=== PATIENT | male | born 1950 | race Caucasian/White ===

== ENCOUNTER 2018-12-03 14:16 | Inpatient (IN) | payer MEDICARE, MEDICAID ==
[~2018-12-03] VITALS: Ht 172.7 cm; Wt 71.2 kg
[2018-12-03] MEDS ORDERED: PANTOPRAZOLE SODIUM 40 MG VIAL IV ONE (14:45)
[2018-12-03] MEDS ORDERED: ONDANSETRON 4 MG/2 ML VIAL IV ONE (14:45)
[2018-12-03] MEDS ORDERED: IV NORMAL SALINE 1000 ML BAG IV ONE (14:45)
[2018-12-03] MEDS ORDERED: PANTOPRAZOLE SODIUM 40 MG VIAL ONE (14:55)
[2018-12-03] MEDS ORDERED: ONDANSETRON 4 MG/2 ML VIAL ONE (14:55)
[2018-12-03 15:04] LABS: BASOPHILS % (AUTO) 0.6 % (0.0-2.0); EOSINOPHILS % (AUTO) 0.3 % (0.0-7.0); HEMATOCRIT 45.3 % (36.7-47.1); HEMOGLOBIN 14.6 g/dL (12.5-16.3); LYMPHOCYTES # (AUTO) 0.5 K/uL (20.0-40.0); LYMPHOCYTES % (AUTO) 8.6 % (20.5-51.5); MEAN CORPUSCULAR HEMOGLOBIN 27.6 uug (23.8-33.4); MEAN CORPUSCULAR HGB CONC 32 g/dL (32.5-36.3); MONOCYTES # (AUTO) 0.7 K/uL (2.0-10.0); MONOCYTES % (AUTO) 11.4 % (0.0-11.0); NEUTROPHILS # (AUTO) 4.6 K/uL (1.8-8.9); NEUTROPHILS % (AUTO) 79.1 % (38.5-71.5); PLATELET COUNT (AUTO) 205 K/uL (152-348); RED BLOOD CELL COUNT(AUTO) 5.27 MIL/uL (4.06-5.63); WHITE BLOOD COUNT (AUTO) 5.8 K/uL (3.6-10.2)
[2018-12-03 15:08] LABS: CREATININE 2.3 mg/dL (0.6-1.3); POTASSIUM 4.1 mmol/L (3.5-5.1)
[2018-12-03 15:15] LABS: BILIRUBIN,DIRECT 0.5 mg/dL (0.0-0.2); BILIRUBIN,TOTAL 1.5 mg/dL (0.2-1.0); TOTAL PROTEIN, SERUM 6.3 g/dL (6.4-8.2)
[2018-12-03] MEDS ORDERED: AZITHROMYCIN IV 500 MG in IV DEXTROSE 5% 250 ML IV ONE (15:30)
[2018-12-03] MEDS ORDERED: CEFTRIAXONE 1 G in IV DEXTROSE 5% 50 ML IV ONE (15:30)
[2018-12-03] MEDS ORDERED: CEFTRIAXONE /D5W 50ML IVPB **ER PYXIS IV ONE (15:54)
[2018-12-03] MEDS ORDERED: AZITHROMYCIN 500MG/ D5W 250ML IVPB **ER PYXIS ONLY IV ONE (16:01)
[2018-12-03] MEDS ORDERED: TAMS-3 PO (16:22)
[2018-12-03] MEDS ORDERED: TRAZ-182 PO (16:22)
[2018-12-03] MEDS ORDERED: FURO-151 PO (16:22)
[2018-12-03] MEDS ORDERED: ASPI81TA31 PO (16:22)
[2018-12-03] MEDS ORDERED: METH5TAB4 PO (16:22)
[2018-12-03] MEDS ORDERED: CITA20TA16 PO (16:22)
[2018-12-03] MEDS ORDERED: DONE5TAB34 PO (16:22)
[2018-12-03] MEDS ORDERED: CARV12.52 PO (16:22)
[2018-12-03] MEDS ORDERED: LEVO112T5 PO (16:22)
[2018-12-03] MEDS ORDERED: ATOR40TA PO (16:22)
[2018-12-03] MEDS ORDERED: FAMO-132 PO (16:22)
[2018-12-03] MEDS ORDERED: WARF2TAB57 PO (17:08)
[2018-12-03 20:45] VITALS: BP 155/108
[2018-12-03] MEDS ORDERED: Z GUARD REMEDY PASTE 57 GM TUBE TOP PRN (21:30)
[2018-12-03] MEDS ORDERED: HYDROCODONE/APAP 5-325MG TABLET PO PRN (21:30)
[2018-12-03] MEDS ORDERED: ACETAMINOPHEN 325 MG TABLET PO PRN (21:30)
[2018-12-03] MEDS ORDERED: ZOLPIDEM 5 MG TABLET PO PRN (21:30)
[2018-12-03] MEDS ORDERED: MAGNESIUM HYDROXIDE 30 ML LIQUID UDC PO PRN (21:30)
[2018-12-03] MEDS ORDERED: ONDANSETRON 4 MG/2 ML VIAL IV PRN (21:30)
[2018-12-03] MEDS ORDERED: CARVEDILOL 12.5 MG TABLET PO ONE (22:30)
[2018-12-03] MEDS: IV NS 1000 ML 1,000 ML IV PRN (23:05)
[2018-12-03 23:23] LABS: *BILIRUBIN,URIN NEGATIVE (NEGATIVE); *BLOOD, URINE 2+ (NEGATIVE); *CLARITY,URINE CLOUDY (CLEAR); *COLOR,URINE AMBER (YELLOW); *KETONES,URINE TRACE (NEGATIVE); *UROBILINOGEN,URINE 0.2 E.U./dl (NORMAL); LEUKOCYTE ESTERASE ,URINE 1+ (NEGATIVE); NITRITE, URINE NEGATIVE (NEGATIVE); UGLUCOSE NEGATIVE (NEGATIVE)
[2018-12-04] VITALS (7 sets, daily range): BP systolic 112–146; BP diastolic 72–101
[2018-12-04 00:05] LABS: RBC,URINE 20-50 /HPF (0-3)
[2018-12-04 00:06] LABS: BACTERIA,URINE MANY /HPF (NONE SEEN); SQUAMOUS EPITHELIAL CELL,UR FEW /HPF (NONE SEEN); WBC,URINE 20-50 /HPF (0-3)
[2018-12-04 06:33] LABS: BASOPHILS % (AUTO) 0.8 % (0.0-2.0); EOSINOPHILS # (AUTO) 0.1 K/uL (0.0-0.7); EOSINOPHILS % (AUTO) 1.3 % (0.0-7.0); HEMATOCRIT 42.5 % (36.7-47.1); HEMOGLOBIN 13.9 g/dL (12.5-16.3); LYMPHOCYTES # (AUTO) 0.6 K/uL (20.0-40.0); LYMPHOCYTES % (AUTO) 11.4 % (20.5-51.5); MEAN CORPUSCULAR HEMOGLOBIN 27.9 uug (23.8-33.4); MEAN CORPUSCULAR HGB CONC 33 g/dL (32.5-36.3); MEAN CORPUSCULAR VOLUME 85.3 fL (73.0-96.2); MONOCYTES # (AUTO) 0.6 K/uL (2.0-10.0); MONOCYTES % (AUTO) 11.1 % (0.0-11.0); NEUTROPHILS % (AUTO) 75.4 % (38.5-71.5); PLATELET COUNT (AUTO) 195 K/uL (152-348); RED BLOOD CELL COUNT(AUTO) 4.99 MIL/uL (4.06-5.63); WHITE BLOOD COUNT (AUTO) 5.2 K/uL (3.6-10.2)
[2018-12-04 06:46] LABS: CREATININE 2.1 mg/dL (0.6-1.3); MAGNESIUM 2.1 mg/dL (1.8-2.4); PHOSPHOROUS 3.5 mg/dL (2.5-4.9); POTASSIUM 3.9 mmol/L (3.5-5.1)
[2018-12-04] MEDS ORDERED: DEXTROSE 50% 50 ML DISP.SYRIN IV PRN ×2 (08:30→17:15)
[2018-12-04] MEDS ORDERED: INSULIN REGULAR, HUMAN 300 UNIT/3 ML VIAL SQ PRN ×2 (08:30→09:00)
[2018-12-04] MEDS: TAMSULOSIN HCL 0.4 MG CAP.SR.24H PO SCH (08:59)
[2018-12-04] MEDS: CARVEDILOL 12.5 MG TABLET PO SCH ×2 (08:59→21:29)
[2018-12-04] MEDS: ASPIRIN 81 MG TAB.CHEW PO SCH (08:59)
[2018-12-04] MEDS: CITALOPRAM 20 MG TABLET PO SCH (08:59)
[2018-12-04] MEDS: METHYLPHENIDATE HCL 5 MG TABLET PO SCH (08:59)
[2018-12-04] MEDS: DONEPEZIL 5 MG TABLET PO SCH (08:59)
[2018-12-04] MEDS: LEVOTHYROXINE SODIUM 112 MCG TABLET PO SCH (08:59)
[2018-12-04] MEDS: FAMOTIDINE 20 MG TABLET PO SCH (08:59)
[2018-12-04] MEDS: BLOOD SUGAR DIAGNOSTIC 1 EACH STRIP VI SCH ×5 (11:45→21:32)
[2018-12-04] MEDS: CEFTRIAXONE 1 G in IV DEXTROSE 5% 50 ML IV SCH (16:49)
[2018-12-04] MEDS: INSULIN REGULAR, HUMAN 300 UNIT/3 ML VIAL SQ PRN ×2 (17:26→21:35)
[2018-12-04] MEDS: AZITHROMYCIN IV 250 MG in IV DEXTROSE 5% 250 ML IV SCH (17:44)
[2018-12-04] MEDS: WARFARIN SODIUM 2 MG TABLET PO SCH (17:53)
[2018-12-04] MEDS: ATORVASTATIN 40 MG TABLET PO SCH (21:23)
[2018-12-04] MEDS: TRAZODONE 50 MG TABLET PO SCH (21:23)
[2018-12-05] MEDS: IV NS 1000 ML 1,000 ML IV PRN ×2 (00:36→15:05)
[2018-12-05 05:00] VITALS: BP 109/71
[2018-12-05 08:00] VITALS: BP 109/78
[2018-12-05] MEDS: BLOOD SUGAR DIAGNOSTIC 1 EACH STRIP VI SCH ×5 (08:27→21:25)
[2018-12-05] MEDS: CITALOPRAM 20 MG TABLET PO SCH (10:38)
[2018-12-05] MEDS: ASPIRIN 81 MG TAB.CHEW PO SCH (10:38)
[2018-12-05] MEDS: DONEPEZIL 5 MG TABLET PO SCH (10:38)
[2018-12-05] MEDS: CARVEDILOL 12.5 MG TABLET PO SCH ×2 (10:40→21:26)
[2018-12-05] MEDS: METHYLPHENIDATE HCL 5 MG TABLET PO SCH (10:41)
[2018-12-05] MEDS: FAMOTIDINE 20 MG TABLET PO SCH (10:41)
[2018-12-05] MEDS: TAMSULOSIN HCL 0.4 MG CAP.SR.24H PO SCH (10:41)
[2018-12-05] MEDS: LEVOTHYROXINE SODIUM 112 MCG TABLET PO SCH (10:42)
[2018-12-05 11:00] VITALS: BP 122/85
[2018-12-05 12:21] LABS: BASOPHILS % (AUTO) 0.5 % (0.0-2.0); EOSINOPHILS # (AUTO) 0.1 K/uL (0.0-0.7); EOSINOPHILS % (AUTO) 1.4 % (0.0-7.0); HEMATOCRIT 43.6 % (36.7-47.1); HEMOGLOBIN 13.4 g/dL (12.5-16.3); LYMPHOCYTES # (AUTO) 0.5 K/uL (20.0-40.0); LYMPHOCYTES % (AUTO) 8.2 % (20.5-51.5); MEAN CORPUSCULAR HEMOGLOBIN 26.5 uug (23.8-33.4); MEAN CORPUSCULAR HGB CONC 31 g/dL (32.5-36.3); MEAN CORPUSCULAR VOLUME 86.5 fL (73.0-96.2); MONOCYTES # (AUTO) 0.5 K/uL (2.0-10.0); NEUTROPHILS # (AUTO) 4.9 K/uL (1.8-8.9); NEUTROPHILS % (AUTO) 80.9 % (38.5-71.5); PLATELET COUNT (AUTO) 167 K/uL (152-348); RED BLOOD CELL COUNT(AUTO) 5.04 MIL/uL (4.06-5.63)
[2018-12-05 12:23] LABS: BILIRUBIN,TOTAL 0.7 mg/dL (0.2-1.0); PHOSPHOROUS 2.8 mg/dL (2.5-4.9); POTASSIUM 4.1 mmol/L (3.5-5.1); TOTAL PROTEIN, SERUM 5.6 g/dL (6.4-8.2)
[2018-12-05] MEDS: INSULIN REGULAR, HUMAN 300 UNIT/3 ML VIAL SQ PRN ×3 (12:30→21:28)
[2018-12-05] MEDS: CEFTRIAXONE 1 G in IV DEXTROSE 5% 50 ML IV SCH (15:45)
[2018-12-05 16:00] VITALS: BP 118/75
[2018-12-05] MEDS: AZITHROMYCIN IV 250 MG in IV DEXTROSE 5% 250 ML IV SCH (18:22)
[2018-12-05] MEDS: WARFARIN SODIUM 2 MG TABLET PO SCH (18:37)
[2018-12-05 20:05] VITALS: BP 110/73
[2018-12-05] MEDS: ATORVASTATIN 40 MG TABLET PO SCH (21:26)
[2018-12-05] MEDS: TRAZODONE 50 MG TABLET PO SCH (21:27)
[2018-12-06] VITALS: BP 118/74
[2018-12-06 04:00] VITALS: BP 113/72
[2018-12-06] MEDS: IV NS 1000 ML 1,000 ML IV PRN (04:05)
[2018-12-06] MEDS: BLOOD SUGAR DIAGNOSTIC 1 EACH STRIP VI SCH ×3 (06:59→16:51)
[2018-12-06] MEDS: LEVOTHYROXINE SODIUM 112 MCG TABLET PO SCH (09:09)
[2018-12-06] MEDS: CITALOPRAM 20 MG TABLET PO SCH (09:09)
[2018-12-06] MEDS: TAMSULOSIN HCL 0.4 MG CAP.SR.24H PO SCH (09:09)
[2018-12-06] MEDS: ASPIRIN 81 MG TAB.CHEW PO SCH (09:09)
[2018-12-06] MEDS: DONEPEZIL 5 MG TABLET PO SCH (09:09)
[2018-12-06] MEDS: FAMOTIDINE 20 MG TABLET PO SCH (09:09)
[2018-12-06] MEDS: METHYLPHENIDATE HCL 5 MG TABLET PO SCH (09:09)
[2018-12-06] MEDS: CARVEDILOL 12.5 MG TABLET PO SCH (09:10)
[2018-12-06 11:00] VITALS: BP 136/89
[2018-12-06] MEDS: INSULIN REGULAR, HUMAN 300 UNIT/3 ML VIAL SQ PRN ×2 (12:27→16:52)
[2018-12-06] MEDS ORDERED: INSU100V28 SQ (13:45)
[2018-12-06] MEDS ORDERED: CEFT1FRO2 IV (13:45)
[2018-12-06 15:26] VITALS: BP 141/87
[2018-12-06 15:39] LABS: BASOPHILS # (AUTO) 0.1 K/uL (0.0-8.0); BASOPHILS % (AUTO) 1.2 % (0.0-2.0); EOSINOPHILS # (AUTO) 0.1 K/uL (0.0-0.7); EOSINOPHILS % (AUTO) 1.4 % (0.0-7.0); HEMATOCRIT 45.5 % (36.7-47.1); HEMOGLOBIN 13.9 g/dL (12.5-16.3); LYMPHOCYTES # (AUTO) 0.6 K/uL (20.0-40.0); LYMPHOCYTES % (AUTO) 10.3 % (20.5-51.5); MEAN CORPUSCULAR HEMOGLOBIN 26.3 uug (23.8-33.4); MEAN CORPUSCULAR HGB CONC 31 g/dL (32.5-36.3); MEAN CORPUSCULAR VOLUME 86.1 fL (73.0-96.2); MONOCYTES # (AUTO) 0.6 K/uL (2.0-10.0); MONOCYTES % (AUTO) 10.3 % (0.0-11.0); NEUTROPHILS # (AUTO) 4.6 K/uL (1.8-8.9); NEUTROPHILS % (AUTO) 76.8 % (38.5-71.5); PLATELET COUNT (AUTO) 158 K/uL (152-348); RED BLOOD CELL COUNT(AUTO) 5.29 MIL/uL (4.06-5.63); WHITE BLOOD COUNT (AUTO) 5.9 K/uL (3.6-10.2)
[2018-12-06 15:54] LABS: CREATININE 1.8 mg/dL (0.6-1.3); POTASSIUM 4.6 mmol/L (3.5-5.1)
[2018-12-06] MEDS: CEFTRIAXONE 1 G in IV DEXTROSE 5% 50 ML IV SCH (16:02)
[2018-12-06] MEDS: WARFARIN SODIUM 2 MG TABLET PO SCH (16:53)
[2018-12-07 04:06] LABS: A/G RATIO 1.1 (0.7-1.7); ALBUMIN 2.6 g/dL (2.9-4.4); ALPHA-1-GLOBULIN 0.3 g/dL (0.0-0.4); ALPHA-2-GLOBULIN 0.6 g/dL (0.4-1.0); BETA GLOBULIN 0.9 g/dL (0.7-1.3); GAMMA GLOBULIN 0.7 g/dL (0.4-1.8); GLOBULIN, TOTAL 2.4 g/dL (2.2-3.9); M-SPIKE Not Observed g/dL (Not Observed)
== END 2018-12-06 18:30 | DRG 682 ==
LOC: ER 14:16 → TELE3 20:16
PROVIDERS: ADMIT Nurse Practitioner Acute Care; ATTEND Nurse Practitioner Acute Care
DX: N17.0 Acute kidney failure with tubular necrosis (principal); I71.01 Dissection of thoracic aorta; J15.6 Pneumonia due to other Gram-negative bacteria; G93.41 Metabolic encephalopathy; E44.1 Mild protein-calorie malnutrition; N39.0 Urinary tract infection, site not specified; J98.11 Atelectasis; R18.8 Other ascites; J91.8 Pleural effusion in other conditions classified elsewhere; N20.1 Calculus of ureter; Z95.810 Presence of automatic (implantable) cardiac defibrillator; G89.4 Chronic pain syndrome; I25.10 Atherosclerotic heart disease of native coronary artery without angina pectoris; Z95.1 Presence of aortocoronary bypass graft; I70.0 Atherosclerosis of aorta; N40.0 Benign prostatic hyperplasia without lower urinary tract symptoms; K21.9 Gastro-esophageal reflux disease without esophagitis; F03.90 Unspecified dementia, unspecified severity, without behavioral disturbance, psychotic disturbance, mood disturbance, and anxiety; B96.20 Unspecified Escherichia coli [E. coli] as the cause of diseases classified elsewhere; Z16.12 Extended spectrum beta lactamase (ESBL) resistance; Z16.24 Resistance to multiple antibiotics; I13.10 Hypertensive heart and chronic kidney disease without heart failure, with stage 1 through stage 4 chronic kidney disease, or unspecified chronic kidney disease; E11.22 Type 2 diabetes mellitus with diabetic chronic kidney disease; N18.9 Chronic kidney disease, unspecified; I45.4 Nonspecific intraventricular block; E78.5 Hyperlipidemia, unspecified; E03.9 Hypothyroidism, unspecified; Z79.01 Long term (current) use of anticoagulants; Z79.899 Other long term (current) drug therapy; Z79.82 Long term (current) use of aspirin; Z79.02 Long term (current) use of antithrombotics/antiplatelets; Z79.890 Hormone replacement therapy; Z87.442 Personal history of urinary calculi; N13.30 Unspecified hydronephrosis
CPT/HCPCS: 36415; 70030-TC; 71045; 76770; 83605; 83690; 83735; 83970; 84100; 84155; 84165; 85025; 85610; 85730; 87040; 87086; 93005; A4663; C9113; G0378; J0456; J0696; J1815; J2405; J7030; J7060

== ENCOUNTER 2018-12-06 17:49 | Inpatient (IN) | payer MEDICARE, MEDICAID ==
[~2018-12-06] VITALS: Ht 172.7 cm; Wt 71.2 kg
[~2018-12-06 17:49] MED LIST: ASPI81TA31 PO; ATOR40TA PO; CARV12.52 PO; CEFT1FRO2 IV; CITA20TA16 PO; DONE5TAB34 PO; FAMO-132 PO; FURO-151 PO; INSU100V28 SQ; LEVO112T5 PO; METH5TAB4 PO; TAMS-3 PO; TRAZ-182 PO; WARF2TAB57 PO
--- NOTE | 2018-12-06 18:57 | NUR ---
DR CORREA MADE AWARE ABOUT ADMISSION AND DR DA SILVA TO [facility] Addendum: 12/06/18 at 1901 by CAMACHO BANDA RN, RN PATIENT ADMITTED FROM MEDSURGE 1830 TO ROOM 108 DX OF ACUTE KIDNEY INJURY, NO SOB, RESP EVEN NONLABORED,SKIN WARM AND DRY TO TOUCH, PATIENT IN BED, CALM AND COMFORTABLE, NO DISTRESS NOTED
[2018-12-06] MEDS ORDERED: INSULIN REGULAR, HUMAN 300 UNIT/3 ML VIAL SQ PRN (19:15)
[2018-12-06] MEDS ORDERED: DEXTROSE 50% 50 ML DISP.SYRIN IV PRN (20:00)
[2018-12-06] MEDS: TRAZODONE 50 MG TABLET PO SCH (20:58)
[2018-12-06] MEDS: CARVEDILOL 12.5 MG TABLET PO SCH (20:59)
[2018-12-06] MEDS ORDERED: ATORVASTATIN 40 MG TABLET PO SCH (21:00)
[2018-12-06 21:01] VITALS: BP 137/90
[2018-12-06] MEDS: BLOOD SUGAR DIAGNOSTIC 1 EACH STRIP VI SCH (21:02)
[2018-12-06] MEDS: MEROPENEM 0.5 G in IV NORMAL SALINE 50 ML IV SCH (22:00)
[2018-12-06] MEDS ORDERED: MEROPENEM 500 MG VIAL IV ONE (23:19)
[2018-12-07 04:32] VITALS: BP 135/102
--- NOTE | 2018-12-07 04:34 | NUR ---
admitted from med-surg a 68 yr old male with admitting diagnosis of acute kidney injury. Hx of DM, Chronic back pain, BPH, Hypothyroidism, Dementia, CABG, lower thoracic aneurysm. AAOx3-4, able to follow commands. Patient has some periods of confusion at times, with forgetfulness. Lungs CTA but diminished at the bases. Skin intact with some multiple bruises with black and blue rogers. Seen by Dr Oconnell(psychiatrist) because before patient was on 51/50 hold but was already clear. Patient on contact isolation for VRE in urine. Patient started on IV ABT given as scheduled. No ill effects noted. Patient incontinent/continent of bowel and bladder. No BM noted. VSS. Patient pulled out heplock on right hand, replace with a #22 G heplock and instruct patient not to pull it since he needed it for his ABT. Patient compliant with the meds/order. Merrem given as scheduled. Will monitor patient. Seen by Dr Martinez([facility]) and ordered also ultrasound of the left forearm which is red and swollen.
[2018-12-07] MEDS ORDERED: MEROPENEM 500 MG VIAL IV ONE (05:41)
[2018-12-07] MEDS: MEROPENEM 0.5 G in IV NORMAL SALINE 50 ML IV SCH ×2 (05:54→17:06)
[2018-12-07] MEDS: LEVOTHYROXINE SODIUM 112 MCG TABLET PO SCH (06:34)
[2018-12-07] MEDS: BLOOD SUGAR DIAGNOSTIC 1 EACH STRIP VI SCH ×4 (06:37→20:36)
[2018-12-07 07:29] LABS: BASOPHILS # (AUTO) 0.1 K/uL (0.0-8.0); CREATININE 1.9 mg/dL (0.6-1.3); EOSINOPHILS # (AUTO) 0.1 K/uL (0.0-0.7); EOSINOPHILS % (AUTO) 1.6 % (0.0-7.0); HEMATOCRIT 43.2 % (36.7-47.1); HEMOGLOBIN 13.9 g/dL (12.5-16.3); LYMPHOCYTES # (AUTO) 0.7 K/uL (20.0-40.0); LYMPHOCYTES % (AUTO) 12.7 % (20.5-51.5); MAGNESIUM 2.1 mg/dL (1.8-2.4); MEAN CORPUSCULAR HEMOGLOBIN 27.8 uug (23.8-33.4); MEAN CORPUSCULAR HGB CONC 32 g/dL (32.5-36.3); MONOCYTES # (AUTO) 0.6 K/uL (2.0-10.0); MONOCYTES % (AUTO) 11.5 % (0.0-11.0); NEUTROPHILS # (AUTO) 3.9 K/uL (1.8-8.9); NEUTROPHILS % (AUTO) 73.2 % (38.5-71.5); PHOSPHOROUS 2.8 mg/dL (2.5-4.9); PLATELET COUNT (AUTO) 168 K/uL (152-348); POTASSIUM 4.5 mmol/L (3.5-5.1); RED BLOOD CELL COUNT(AUTO) 5.02 MIL/uL (4.06-5.63); WHITE BLOOD COUNT (AUTO) 5.3 K/uL (3.6-10.2)
[2018-12-07 08:05] VITALS: BP 137/91
[2018-12-07] MEDS: CITALOPRAM 20 MG TABLET PO SCH (08:37)
[2018-12-07] MEDS: DONEPEZIL 5 MG TABLET PO SCH (08:37)
[2018-12-07] MEDS: METHYLPHENIDATE HCL 5 MG TABLET PO SCH (08:38)
[2018-12-07] MEDS: CARVEDILOL 12.5 MG TABLET PO SCH ×2 (08:38→20:35)
[2018-12-07] MEDS: FAMOTIDINE 20 MG TABLET PO SCH (08:38)
[2018-12-07] MEDS ORDERED: ASPIRIN 81 MG TAB.CHEW PO SCH (09:00)
[2018-12-07] MEDS ORDERED: TAMSULOSIN HCL 0.4 MG CAP.SR.24H PO SCH (09:00)
--- NOTE | 2018-12-07 11:36 | NUR ---
Patient critical high INR 4.15 result relayed to MD Bernal. no new order. no complaint of pain/discomfort. no signs of bleeding noted. will continue monitor Addendum: 12/07/18 at 1143 by SUJATA PENA RN RN Will hold coumadin 2mg as per protocol order.
--- NOTE | 2018-12-07 11:48 | NUR ---
Patient went out on pass around 930am to post office as verbalize by patient in stable condition. Came back around 1145am. no complaint voiced. will continue monitor Addendum: 12/07/18 at 1235 by SUJATA PENA RN RN ERROR
[2018-12-07] MEDS ORDERED: BLOOD SUGAR DIAGNOSTIC 1 EACH STRIP VI SCH (12:15)
[2018-12-07] MEDS ORDERED: INSULIN REGULAR, HUMAN 300 UNIT/3 ML VIAL SQ PRN (12:15)
[2018-12-07] MEDS ORDERED: DEXTROSE 50% 50 ML DISP.SYRIN IV PRN ×2 (12:15)
[2018-12-07] MEDS: INSULIN REGULAR, HUMAN 300 UNIT/3 ML VIAL SQ PRN ×2 (12:19→16:11)
--- NOTE | 2018-12-07 12:36 | NUR ---
MD Bernal ordered hold coumadin as per protocol.
[2018-12-07] MEDS: ALPRAZOLAM 0.5 MG TABLET PO PRN (14:11)
--- NOTE | 2018-12-07 14:26 | NUR ---
Patient complaint of difficulty breathing and anxious. VS:BP-149/101, P77, R 28, O2 sat- 98% with o2. chest x-ray ordered by MD Bernal. Xanax 0.5 every 8 hours PRN-given. not in distress. will continue monitor
[2018-12-07 15:14] VITALS: BP 136/96
[2018-12-07] MEDS ORDERED: CEFTRIAXONE 1 G in IV DEXTROSE 5% 50 ML IV SCH (16:00)
[2018-12-07] MEDS ORDERED: ALBUTEROL SULFATE 2.5 MG/3 ML NEBU NEB PRN (16:00)
[2018-12-07] MEDS ORDERED: WARFARIN SODIUM 2 MG TABLET PO SCH (17:00)
--- NOTE | 2018-12-07 17:19 | NUR ---
Patient continue difficulty of breathing noted. Respiration- 25, MD Bernal aware, chest x-ray done, relayed to MD. ordered breathing treatment albuterol every 4 hours PRN- given with fair effect. will continue monitor
[2018-12-07 20:18] VITALS: BP 131/87
[2018-12-07] MEDS: ATORVASTATIN 10 MG TABLET PO SCH (20:35)
[2018-12-07] MEDS: TRAZODONE 50 MG TABLET PO SCH (20:35)
[2018-12-08 04:53] VITALS: BP 139/94
[2018-12-08] MEDS: MEROPENEM 0.5 G in IV NORMAL SALINE 50 ML IV SCH ×2 (05:02→17:09)
--- NOTE | 2018-12-08 05:51 | NUR ---
Patient received in bed, AAO x3. Not in acute distress or SOB. Able to make needs known. On 2 L O2 via NC. VS stable. No Complain of pain. All due medication given and well tolerated. Pictures taken and placed in the chart. Accucheck @ 2100 checked: 107, no coverage based on sliding scale. IV antibiotic administered. All needs attended promptly. Physical assessment done. Fall prevention observed. Safety measures maintained. Isolation maintained. Bed in low and lock position, alarm on, side rails up x2 for safety. Call light and frequently used items within reach. Continue to monitor and will endorse to the day shift nurse accordingly.
[2018-12-08] MEDS: LEVOTHYROXINE SODIUM 112 MCG TABLET PO SCH (06:08)
[2018-12-08] MEDS: BLOOD SUGAR DIAGNOSTIC 1 EACH STRIP VI SCH ×4 (06:32→20:22)
[2018-12-08] MEDS: DONEPEZIL 5 MG TABLET PO SCH (08:15)
[2018-12-08] MEDS: FAMOTIDINE 20 MG TABLET PO SCH (08:15)
[2018-12-08] MEDS: CITALOPRAM 20 MG TABLET PO SCH (08:15)
[2018-12-08] MEDS: METHYLPHENIDATE HCL 5 MG TABLET PO SCH (08:15)
[2018-12-08] MEDS: ASPIRIN EC 81 MG TABLET.DR PO SCH (08:15)
[2018-12-08] MEDS: CARVEDILOL 12.5 MG TABLET PO SCH ×2 (08:16→20:14)
[2018-12-08] MEDS: GLIMEPIRIDE 2 MG TABLET PO SCH (08:16)
--- NOTE | 2018-12-08 09:12 | NUR ---
Patient INR 3.35 relayed to MD Bernal with order continue hold coumadin. no signs of bleeding noted. not in distress. will continue monitor
[2018-12-08 09:37] VITALS: BP 135/88
[2018-12-08] MEDS: INSULIN REGULAR, HUMAN 300 UNIT/3 ML VIAL SQ PRN ×3 (11:45→20:24)
[2018-12-08] MEDS ORDERED: BENZOCAINE/MENTH/CETYLPYRD LOZENGE MM PRN (12:30)
--- NOTE | 2018-12-08 12:45 | NUR ---
Patient complaint of sore throat. MD Bernal notified ordered cepacol 1 lozenges every 4hours PRN.
[2018-12-08 16:38] VITALS: BP 126/87
[2018-12-08] MEDS ORDERED: COUMADIN VARIABLE DOSE REMINDE XX SCH (17:00)
[2018-12-08] MEDS: ATORVASTATIN 10 MG TABLET PO SCH (20:15)
[2018-12-08] MEDS: TRAZODONE 50 MG TABLET PO SCH (20:15)
[2018-12-08] MEDS: TAMSULOSIN HCL 0.4 MG CAP.SR.24H PO SCH (20:15)
[2018-12-08 21:07] VITALS: BP 127/88
[2018-12-09 05:09] VITALS: BP 144/97
[2018-12-09] MEDS: MEROPENEM 0.5 G in IV NORMAL SALINE 50 ML IV SCH ×2 (05:31→18:11)
[2018-12-09] MEDS: LEVOTHYROXINE SODIUM 112 MCG TABLET PO SCH (06:39)
[2018-12-09] MEDS: BLOOD SUGAR DIAGNOSTIC 1 EACH STRIP VI SCH ×4 (06:43→20:59)
--- NOTE | 2018-12-09 06:54 | NUR ---
patient slept intermittently through out the night. patient a/o x3. patient compliant with medication and medical treatment. patient able to verbalized needs and needs have been met. noted patient to desat into the high 80s without nasal cannula 2L. When nasal cannula is applied, patient O2 saturations increased to 100%. Dr. Dee came by in the evening to see the patient. Will continue plan of care and endorse to oncoming day shift.
[2018-12-09] MEDS: ASPIRIN EC 81 MG TABLET.DR PO SCH (08:08)
[2018-12-09] MEDS: FAMOTIDINE 20 MG TABLET PO SCH (08:08)
[2018-12-09] MEDS: GLIMEPIRIDE 2 MG TABLET PO SCH (08:09)
[2018-12-09] MEDS: METHYLPHENIDATE HCL 5 MG TABLET PO SCH (08:09)
[2018-12-09] MEDS: DONEPEZIL 5 MG TABLET PO SCH (08:11)
[2018-12-09] MEDS: CARVEDILOL 12.5 MG TABLET PO SCH ×2 (08:14→20:51)
--- NOTE | 2018-12-09 08:15 | NUR ---
Patient awake, alert, not in any form of distress on O2 at 2LPM. He denies any pain or discomfort. Due medications administered and patient tolerated well. Assisted with his needs. Call light and frequently used items placed within reach.
[2018-12-09] MEDS: CITALOPRAM 20 MG TABLET PO SCH (08:19)
[2018-12-09 08:50] VITALS: BP 138/102
[2018-12-09] MEDS: INSULIN REGULAR, HUMAN 300 UNIT/3 ML VIAL SQ PRN ×2 (17:01→21:00)
[2018-12-09 17:13] VITALS: BP 143/104
--- NOTE | 2018-12-09 17:40 | NUR ---
Received an order from Dr. Bernal for Psych eval. Called manager educational psychiatrist Dr. Oconnell and made aware of the consult.
--- NOTE | 2018-12-09 19:40 | NUR ---
Staffs trying to start peripheral line to the patient during initial rounds. Patient very cooperative but complaint of pain sometimes. Noted multiple bruises on patient bilateral arms due to IV insertion made. No agitation/resistance, peripheral line started on right upper arm x 2 attempts, intact and patient with good return, taped to secure. Contact isolation precaution maintained. Continue care as planned.
[2018-12-09] MEDS: TAMSULOSIN HCL 0.4 MG CAP.SR.24H PO SCH (20:52)
[2018-12-09] MEDS: ATORVASTATIN 10 MG TABLET PO SCH (20:52)
[2018-12-09] MEDS: TRAZODONE 50 MG TABLET PO SCH (20:53)
[2018-12-09 21:46] VITALS: BP 129/95
[2018-12-10] MEDS: MEROPENEM 0.5 G in IV NORMAL SALINE 50 ML IV SCH ×2 (05:31→17:03)
[2018-12-10 06:04] VITALS: BP 137/86
--- NOTE | 2018-12-10 06:14 | NUR ---
Shift End Report: VS stable. No further complaint of pain presented after IV insertion.Continue on Merrem IVPB antibiotic as ordered without s/s of adverse reaction noted. Slept good. All needs attended and met. No significant event reported. Continue current rehab plan of care.
[2018-12-10] MEDS: BLOOD SUGAR DIAGNOSTIC 1 EACH STRIP VI SCH ×4 (06:34→20:50)
[2018-12-10] MEDS: LEVOTHYROXINE SODIUM 112 MCG TABLET PO SCH (06:34)
[2018-12-10 07:15] VITALS: BP 139/92
[2018-12-10 08:00] LABS: BASOPHILS # (AUTO) 0.1 K/uL (0.0-8.0); BASOPHILS % (AUTO) 1.2 % (0.0-2.0); EOSINOPHILS # (AUTO) 0.1 K/uL (0.0-0.7); EOSINOPHILS % (AUTO) 2.3 % (0.0-7.0); HEMATOCRIT 44.2 % (36.7-47.1); HEMOGLOBIN 14.1 g/dL (12.5-16.3); LYMPHOCYTES # (AUTO) 0.5 K/uL (20.0-40.0); LYMPHOCYTES % (AUTO) 9.9 % (20.5-51.5); MEAN CORPUSCULAR HGB CONC 32 g/dL (32.5-36.3); MEAN CORPUSCULAR VOLUME 84.6 fL (73.0-96.2); MONOCYTES # (AUTO) 0.5 K/uL (2.0-10.0); MONOCYTES % (AUTO) 9.8 % (0.0-11.0); NEUTROPHILS # (AUTO) 4.2 K/uL (1.8-8.9); NEUTROPHILS % (AUTO) 76.8 % (38.5-71.5); PLATELET COUNT (AUTO) 155 K/uL (152-348); RED BLOOD CELL COUNT(AUTO) 5.22 MIL/uL (4.06-5.63); WHITE BLOOD COUNT (AUTO) 5.5 K/uL (3.6-10.2)
[2018-12-10 08:21] LABS: MAGNESIUM 1.9 mg/dL (1.8-2.4); PHOSPHOROUS 3.2 mg/dL (2.5-4.9); POTASSIUM 4.7 mmol/L (3.5-5.1); TOTAL PROTEIN, SERUM 5.6 g/dL (6.4-8.2)
[2018-12-10] MEDS: FAMOTIDINE 20 MG TABLET PO SCH (08:27)
[2018-12-10] MEDS: METHYLPHENIDATE HCL 5 MG TABLET PO SCH (08:28)
[2018-12-10] MEDS: ASPIRIN EC 81 MG TABLET.DR PO SCH (08:28)
[2018-12-10] MEDS: GLIMEPIRIDE 2 MG TABLET PO SCH (08:28)
[2018-12-10] MEDS: DONEPEZIL 5 MG TABLET PO SCH (08:29)
[2018-12-10] MEDS: CITALOPRAM 20 MG TABLET PO SCH (08:29)
[2018-12-10] MEDS: CARVEDILOL 12.5 MG TABLET PO SCH ×2 (08:30→20:44)
--- NOTE | 2018-12-10 09:35 | NUR ---
Notified Dr. Bernal regarding INR of 4.28 and BNP 73016 with no new order at this time.
[2018-12-10] MEDS: INSULIN REGULAR, HUMAN 300 UNIT/3 ML VIAL SQ PRN ×2 (12:34→20:52)
--- NOTE | 2018-12-10 15:25 | NUR ---
INTERDISCIPLINARY TEAM CONFERENCE
[2018-12-10 16:20] VITALS: BP 112/91
--- NOTE | 2018-12-10 18:30 | NUR ---
Patient remained alert, not in any form of distress, on 2LPM via NC during the shift. Peripheral line on the right upper arm patent with no signs of infection. No complain of any pain or discomfort. Patient seen by Dr. Bernal, update given, made aware of episodes of elevated diastolic BP with no new order. Patient compliant with medications. Assisted with his needs. Call light and frequently used items placed within reach. Will endorse accordingly to shift manager nurse.
--- NOTE | 2018-12-10 19:35 | NUR ---
Awake, watching TV during initial rounds with HOB elevated and continuos O2 at 2L via NC. No s/s of respiratory distress. Denies any pain/discomforts. Safety measures and fall precaution maintained. Continue care as planned.
[2018-12-10 20:21] VITALS: BP 143/100
[2018-12-10] MEDS: MIRTAZAPINE 15 MG TABLET PO SCH (20:44)
[2018-12-10] MEDS: ATORVASTATIN 10 MG TABLET PO SCH (20:44)
[2018-12-10] MEDS: TAMSULOSIN HCL 0.4 MG CAP.SR.24H PO SCH (20:44)
[2018-12-10 21:20] LABS: *BILIRUBIN,URIN NEGATIVE (NEGATIVE); *BLOOD, URINE NEGATIVE (NEGATIVE); *CLARITY,URINE CLEAR (CLEAR); *COLOR,URINE YELLOW (YELLOW); *KETONES,URINE NEGATIVE (NEGATIVE); LEUKOCYTE ESTERASE ,URINE TRACE (NEGATIVE); NITRITE, URINE NEGATIVE (NEGATIVE); PH,URINE 5.5 (5.0-8.0); UGLUCOSE NEGATIVE (NEGATIVE)
[2018-12-10 21:41] LABS: RBC,URINE 0-3 /HPF (0-3)
[2018-12-10 21:42] LABS: MUCUS,URINE MODERATE /LPF (0-FEW)
[2018-12-11 04:12] VITALS: BP 126/91
[2018-12-11] MEDS: MEROPENEM 0.5 G in IV NORMAL SALINE 50 ML IV SCH ×2 (05:26→17:53)
--- NOTE | 2018-12-11 06:08 | NUR ---
Shift End Report: Slept good. No complaint presented all night, All needs attended and met. No significant event reported all night. Continue care as planned.
[2018-12-11] MEDS: LEVOTHYROXINE SODIUM 112 MCG TABLET PO SCH (06:35)
[2018-12-11] MEDS: BLOOD SUGAR DIAGNOSTIC 1 EACH STRIP VI SCH ×4 (06:38→20:47)
[2018-12-11 08:00] VITALS: BP 162/96
[2018-12-11] MEDS: DONEPEZIL 5 MG TABLET PO SCH (09:28)
[2018-12-11] MEDS: ASPIRIN EC 81 MG TABLET.DR PO SCH (09:30)
[2018-12-11] MEDS: GLIMEPIRIDE 2 MG TABLET PO SCH (09:30)
[2018-12-11] MEDS: CARVEDILOL 12.5 MG TABLET PO SCH ×2 (09:30→20:47)
[2018-12-11] MEDS: FAMOTIDINE 20 MG TABLET PO SCH (09:32)
[2018-12-11] MEDS: METHYLPHENIDATE HCL 5 MG TABLET PO SCH (09:32)
[2018-12-11 17:24] VITALS: BP 137/95
[2018-12-11] MEDS: TAMSULOSIN HCL 0.4 MG CAP.SR.24H PO SCH (20:46)
[2018-12-11] MEDS: ATORVASTATIN 10 MG TABLET PO SCH (20:46)
[2018-12-11] MEDS: MIRTAZAPINE 15 MG TABLET PO SCH (20:47)
[2018-12-11] MEDS: INSULIN REGULAR, HUMAN 300 UNIT/3 ML VIAL SQ PRN (20:50)
[2018-12-11 20:52] VITALS: BP 144/95
--- NOTE | 2018-12-11 21:11 | NUR ---
Received pt resting in bed and watching tv. AAO x3. On 2L O2 via NC, tolerating well. No acute distress noted. Blood sugar of 152, insulin coverage given as per sliding scale. All due meds given as ordered. IV on right upper arm, patent and intact. On isolation for vre urine. Safety measures maintained. Call light and personal belongings within reach. Will continue to monitor.
[2018-12-12 00:40] VITALS: BP_SYST 114; BP_SYST 134; BP_DIAS 61; BP_DIAS 77
[2018-12-12] MEDS: ALPRAZOLAM 0.5 MG TABLET PO PRN (02:12)
[2018-12-12] MEDS: MEROPENEM 0.5 G in IV NORMAL SALINE 50 ML IV SCH (06:05)
[2018-12-12] MEDS: LEVOTHYROXINE SODIUM 112 MCG TABLET PO SCH (06:05)
[2018-12-12] MEDS: BLOOD SUGAR DIAGNOSTIC 1 EACH STRIP VI SCH ×4 (06:38→20:39)
[2018-12-12 08:00] VITALS: BP 131/88
[2018-12-12] MEDS: DONEPEZIL 5 MG TABLET PO SCH (10:48)
[2018-12-12] MEDS: GLIMEPIRIDE 2 MG TABLET PO SCH (10:48)
[2018-12-12] MEDS: CARVEDILOL 12.5 MG TABLET PO SCH ×2 (10:49→20:38)
[2018-12-12] MEDS: ASPIRIN EC 81 MG TABLET.DR PO SCH (10:49)
[2018-12-12] MEDS: METHYLPHENIDATE HCL 5 MG TABLET PO SCH (10:50)
[2018-12-12] MEDS: FAMOTIDINE 20 MG TABLET PO SCH (10:50)
[2018-12-12] MEDS ORDERED: WARFARIN SODIUM 2 MG TABLET PO ONE (18:15)
[2018-12-12 20:26] VITALS: BP 118/81
[2018-12-12] MEDS: TAMSULOSIN HCL 0.4 MG CAP.SR.24H PO SCH (20:39)
[2018-12-12] MEDS: MIRTAZAPINE 15 MG TABLET PO SCH (20:39)
[2018-12-12] MEDS: ATORVASTATIN 10 MG TABLET PO SCH (20:39)
[2018-12-12] MEDS: INSULIN REGULAR, HUMAN 300 UNIT/3 ML VIAL SQ PRN (20:40)
--- NOTE | 2018-12-12 21:02 | NUR ---
Received pt sleeping comfortably. Aroused easily to verbal stimuli. Oriented x3. On 2L O2 via NC, tolerating well. No acute distress noted. Denies pain/ discomfort. Safety measures maintained. Call light and personal belongings within reach. Will continue to monitor.
[2018-12-13 05:07] VITALS: BP 137/91
[2018-12-13] MEDS: LEVOTHYROXINE SODIUM 112 MCG TABLET PO SCH (06:22)
[2018-12-13] MEDS: BLOOD SUGAR DIAGNOSTIC 1 EACH STRIP VI SCH ×4 (06:34→20:45)
--- NOTE | 2018-12-13 07:41 | NUR ---
patient in bed, awake, no distress noted, no sob, resp even nonlabored
[2018-12-13] MEDS: ASPIRIN EC 81 MG TABLET.DR PO SCH (08:50)
[2018-12-13] MEDS: METHYLPHENIDATE HCL 5 MG TABLET PO SCH (08:50)
[2018-12-13] MEDS: FAMOTIDINE 20 MG TABLET PO SCH (08:50)
[2018-12-13] MEDS: GLIMEPIRIDE 2 MG TABLET PO SCH (08:50)
[2018-12-13] MEDS: DONEPEZIL 5 MG TABLET PO SCH (08:51)
[2018-12-13] MEDS: CARVEDILOL 12.5 MG TABLET PO SCH ×2 (08:52→20:41)
[2018-12-13 09:27] VITALS: BP 145/98
[2018-12-13] MEDS: INSULIN REGULAR, HUMAN 300 UNIT/3 ML VIAL SQ PRN ×2 (12:22→20:47)
--- NOTE | 2018-12-13 16:11 | NUR ---
PATIENT IS ALERT, ORIENTED X3, VERBALLY RESPONSIVE, NO SOB,RESP EVEN NONLABORED,SKIN WARM AND DRY TO TOUCH, NOTED WITH +2 PITTING EDEMA TO BOTH LOWER EXTREMITIES AND +3 PITTING EDEMA TO LEFT ARM, ELEVATED TOLERATED.
[2018-12-13 16:48] VITALS: BP 135/96
[2018-12-13] MEDS ORDERED: WARFARIN SODIUM 2 MG TABLET PO ONE (17:00)
--- NOTE | 2018-12-13 18:07 | NUR ---
DR CASH IS AWARE ABOUT THE PITTING EDEMA TO BOTH LOWER EXTREMITIES AND LEFT ARM, ELEVATED TOLERATED, CONTINUE TO MONITOR. SKIN IS INTACT.NO DISTRESS NOTED, TOLERATED PT, OT SERVICES ORDERED, NO SOB NOTED DURING PT, OT SERVICES, CONTINUE TO MONITOR
[2018-12-13] MEDS ORDERED: FUROSEMIDE 20 MG TABLET PO ONE (18:30)
--- NOTE | 2018-12-13 19:40 | NUR ---
Awake in bed, alert and oriented x 2-3. Denies any pain/discomforts at this time. No s/s of hypo/hyperglycemia. Safety measures and fall precaution maintained. Continue care as planned.
[2018-12-13 20:00] VITALS: BP 137/90
[2018-12-13] MEDS: TAMSULOSIN HCL 0.4 MG CAP.SR.24H PO SCH (20:41)
[2018-12-13] MEDS: MIRTAZAPINE 15 MG TABLET PO SCH (20:41)
[2018-12-13] MEDS: ATORVASTATIN 10 MG TABLET PO SCH (20:41)
[2018-12-14 05:23] VITALS: BP 148/94
[2018-12-14] MEDS: LEVOTHYROXINE SODIUM 112 MCG TABLET PO SCH (06:16)
[2018-12-14] MEDS: BLOOD SUGAR DIAGNOSTIC 1 EACH STRIP VI SCH ×4 (06:45→20:46)
--- NOTE | 2018-12-14 06:56 | NUR ---
Shift End Report: Slept good. No complaint presented the whole night. NO s/s of hypo/hyperglycemia noted. No significant event reported. All needs attended and met. Continue current rehab plan of care.
[2018-12-14 07:36] VITALS: BP 147/99
[2018-12-14] MEDS: GLIMEPIRIDE 2 MG TABLET PO SCH (08:43)
[2018-12-14] MEDS: ASPIRIN EC 81 MG TABLET.DR PO SCH (08:43)
[2018-12-14] MEDS: FAMOTIDINE 20 MG TABLET PO SCH (08:43)
[2018-12-14] MEDS: DONEPEZIL 5 MG TABLET PO SCH (08:44)
[2018-12-14] MEDS: METHYLPHENIDATE HCL 5 MG TABLET PO SCH (08:44)
[2018-12-14] MEDS: CARVEDILOL 12.5 MG TABLET PO SCH ×2 (08:45→20:16)
--- NOTE | 2018-12-14 11:26 | NUR ---
SBAR report received, Pt resting in bed comfortably. Pt assessed, no acute distress or pain noted. No SOB on 2 L NC, needing reminded on how to properly use NC. Pt tolerated breakfast well. Pt compliant with routine medications adn therapies as scheduled. Able to make needs known. Bed in locked and lowest position with side rails on x2, bed alarm on. All comfort and safety measures implemented. Personal items and call light placed within reach. Will continue to monitor.
--- NOTE | 2018-12-14 11:30 | NUR ---
Pt seen by MD, new orders received. Plan of care discussed including new lab results negative for VRE. Order for isolation precautions to be removed received. Will follow up as necessary.
[2018-12-14 15:39] VITALS: BP 140/99
[2018-12-14] MEDS: INSULIN REGULAR, HUMAN 300 UNIT/3 ML VIAL SQ PRN (16:49)
[2018-12-14] MEDS ORDERED: WARFARIN SODIUM 2.5 MG TABLET PO ONE (17:00)
[2018-12-14 19:30] VITALS: BP 137/96
--- NOTE | 2018-12-14 19:35 | NUR ---
Awake in bed with HOB elevated, watching TV at this time, calm and cooperative. Denies any pain/discomforts at this time. No s/s of respiratory distress. Continuos O2 at 1.5L via NC saturating 92% at this time. Safety measures and fall precaution maintained. Continue care as planned.
[2018-12-14] MEDS: ATORVASTATIN 10 MG TABLET PO SCH (20:16)
[2018-12-14] MEDS: TAMSULOSIN HCL 0.4 MG CAP.SR.24H PO SCH (20:16)
[2018-12-14] MEDS: MIRTAZAPINE 15 MG TABLET PO SCH (20:16)
[2018-12-15 05:41] VITALS: BP 148/99
[2018-12-15] MEDS: LEVOTHYROXINE SODIUM 112 MCG TABLET PO SCH (06:22)
[2018-12-15] MEDS: BLOOD SUGAR DIAGNOSTIC 1 EACH STRIP VI SCH ×4 (06:26→20:35)
--- NOTE | 2018-12-15 06:38 | NUR ---
Shift End Report: Slept good. No complaint presented all night. No s/s of hypo/hyperglycemia. All needs attended and met. No significant event reported. Continue current rehab plan of care.
[2018-12-15 07:30] VITALS: BP 151/100
[2018-12-15] MEDS: FAMOTIDINE 20 MG TABLET PO SCH (08:27)
[2018-12-15] MEDS: ASPIRIN EC 81 MG TABLET.DR PO SCH (08:28)
[2018-12-15] MEDS: CARVEDILOL 12.5 MG TABLET PO SCH ×2 (08:28→20:33)
[2018-12-15] MEDS: METHYLPHENIDATE HCL 5 MG TABLET PO SCH (08:28)
[2018-12-15] MEDS: DONEPEZIL 5 MG TABLET PO SCH (08:28)
[2018-12-15] MEDS: GLIMEPIRIDE 2 MG TABLET PO SCH (08:41)
[2018-12-15 16:56] VITALS: BP_SYST 141; BP_DIAS 100; BP_DIAS 96
[2018-12-15] MEDS ORDERED: WARFARIN SODIUM 2.5 MG TABLET PO ONE (18:00)
--- NOTE | 2018-12-15 18:57 | NUR ---
Received patient in bed, No acute distress. On NS at 1.5lpm with O2 saturation 98%. Patient is A&O x 2-3. Verbally able to express needs. Vital signs taken and stable for patient. Patient visited by MD. PT/INR discussed with MD and with a new order to give Coumadin 2.5mg PO today at 6pm, administered during shift and tolerated well. Pt. still noted with left arm swelling, elevated on pillows. NO complains of pain during shift. Needs attended, skin kept clean and dry, safety measures in place, endorsed to next shift and will continue with care.
[2018-12-15 19:45] VITALS: BP 155/105
--- NOTE | 2018-12-15 19:45 | NUR ---
Received patient awake in bed; AAO x3. No distress/pain noted or verbalized. Able to make needs known. Pt. is on continuous 1.5L of Oxygen via NC; tolerating well. SpO2 is 99%. Physical assessment done. Fall prevention observed. Safety measures maintained. Bed in low position, alarm on, side rails up x2 for safety. Educated patient to used call light. Call light and frequently used items within reach. Will continue to monitor.
[2018-12-15] MEDS: ATORVASTATIN 10 MG TABLET PO SCH (20:34)
[2018-12-15] MEDS: TAMSULOSIN HCL 0.4 MG CAP.SR.24H PO SCH (20:34)
[2018-12-15] MEDS: MIRTAZAPINE 15 MG TABLET PO SCH (20:34)
[2018-12-16 04:15] VITALS: BP 140/100
--- NOTE | 2018-12-16 06:30 | NUR ---
Patient was stable during the shift and had a good sleep last night. Not in acute distress or SOB. Patient is on 1.5 L of oxygen via NC. VS checked, stable. No complain of pain. All due medications given and well tolerated. All needs attended promptly. Physical assessment done. Fall prevention observed. Safety measures maintained. Bed in low and lock position, alarm on, side rails up x2 for safety. Call light and frequently used items within reach. Continue to monitor and will endorse to the day shift nurse accordingly.
[2018-12-16] MEDS: BLOOD SUGAR DIAGNOSTIC 1 EACH STRIP VI SCH ×4 (06:50→21:55)
[2018-12-16] MEDS: LEVOTHYROXINE SODIUM 112 MCG TABLET PO SCH (06:54)
[2018-12-16 07:12] LABS: BASOPHILS # (AUTO) 0.1 K/uL (0.0-8.0); EOSINOPHILS # (AUTO) 0.1 K/uL (0.0-0.7); EOSINOPHILS % (AUTO) 1.8 % (0.0-7.0); HEMATOCRIT 45.7 % (36.7-47.1); HEMOGLOBIN 14.5 g/dL (12.5-16.3); LYMPHOCYTES # (AUTO) 0.7 K/uL (20.0-40.0); LYMPHOCYTES % (AUTO) 13.3 % (20.5-51.5); MEAN CORPUSCULAR HEMOGLOBIN 26.7 uug (23.8-33.4); MEAN CORPUSCULAR HGB CONC 32 g/dL (32.5-36.3); MEAN CORPUSCULAR VOLUME 84.3 fL (73.0-96.2); MONOCYTES # (AUTO) 0.6 K/uL (2.0-10.0); MONOCYTES % (AUTO) 10.8 % (0.0-11.0); NEUTROPHILS % (AUTO) 73.1 % (38.5-71.5); PLATELET COUNT (AUTO) 139 K/uL (152-348); RED BLOOD CELL COUNT(AUTO) 5.42 MIL/uL (4.06-5.63); WHITE BLOOD COUNT (AUTO) 5.4 K/uL (3.6-10.2)
[2018-12-16 07:27] LABS: CREATININE 1.9 mg/dL (0.6-1.3); MAGNESIUM 1.9 mg/dL (1.8-2.4); PHOSPHOROUS 3.6 mg/dL (2.5-4.9); POTASSIUM 4.7 mmol/L (3.5-5.1)
[2018-12-16 07:43] VITALS: BP 154/102
[2018-12-16] MEDS: FAMOTIDINE 20 MG TABLET PO SCH (08:11)
[2018-12-16] MEDS: ASPIRIN EC 81 MG TABLET.DR PO SCH (08:11)
[2018-12-16] MEDS: CARVEDILOL 12.5 MG TABLET PO SCH ×2 (08:11→21:55)
[2018-12-16] MEDS: METHYLPHENIDATE HCL 5 MG TABLET PO SCH (08:11)
[2018-12-16] MEDS: GLIMEPIRIDE 2 MG TABLET PO SCH (08:12)
[2018-12-16] MEDS: DONEPEZIL 5 MG TABLET PO SCH (08:12)
[2018-12-16] MEDS: INSULIN REGULAR, HUMAN 300 UNIT/3 ML VIAL SQ PRN ×3 (12:04→21:53)
[2018-12-16 16:17] VITALS: BP 151/103
[2018-12-16] MEDS ORDERED: WARFARIN SODIUM 2 MG TABLET PO ONE ×2 (17:00)
[2018-12-16 19:52] VITALS: BP 123/90
--- NOTE | 2018-12-16 20:23 | NUR ---
Pt in stable condition, bed alarm is on, pt states no urgent needs at the moment
[2018-12-16] MEDS: TAMSULOSIN HCL 0.4 MG CAP.SR.24H PO SCH (21:53)
[2018-12-16] MEDS: ATORVASTATIN 10 MG TABLET PO SCH (21:53)
[2018-12-16] MEDS: MIRTAZAPINE 15 MG TABLET PO SCH (21:53)
[2018-12-16] MEDS: ALPRAZOLAM 0.5 MG TABLET PO PRN (23:47)
[2018-12-17 04:53] VITALS: BP 127/91
[2018-12-17] MEDS: LEVOTHYROXINE SODIUM 112 MCG TABLET PO SCH (06:41)
[2018-12-17] MEDS: BLOOD SUGAR DIAGNOSTIC 1 EACH STRIP VI SCH ×4 (07:03→21:38)
--- NOTE | 2018-12-17 07:33 | NUR ---
BS 64 this Am. hypoglycemic protocol initiated1. pt given 2 gram crackers. endorsed to Am nursing
[2018-12-17 07:56] VITALS: BP 127/85
[2018-12-17] MEDS: FAMOTIDINE 20 MG TABLET PO SCH (10:08)
[2018-12-17] MEDS: METHYLPHENIDATE HCL 5 MG TABLET PO SCH (10:08)
[2018-12-17] MEDS: ASPIRIN EC 81 MG TABLET.DR PO SCH (10:08)
[2018-12-17] MEDS: DONEPEZIL 5 MG TABLET PO SCH (10:09)
[2018-12-17] MEDS: CARVEDILOL 12.5 MG TABLET PO SCH ×2 (10:09→20:55)
[2018-12-17] MEDS: GLIMEPIRIDE 2 MG TABLET PO SCH (10:25)
[2018-12-17] MEDS: INSULIN REGULAR, HUMAN 300 UNIT/3 ML VIAL SQ PRN (12:59)
--- NOTE | 2018-12-17 15:46 | NUR ---
INTERDISCIPLINARY TEAM CONFERENCE
[2018-12-17 15:52] VITALS: BP 129/86
[2018-12-17] MEDS ORDERED: WARFARIN SODIUM 2 MG TABLET PO ONE (17:00)
[2018-12-17] MEDS ORDERED: WARFARIN SODIUM 1 MG TABLET PO ONE (17:00)
[2018-12-17] MEDS: MIRTAZAPINE 15 MG TABLET PO SCH (20:55)
[2018-12-17] MEDS: ATORVASTATIN 10 MG TABLET PO SCH (20:56)
[2018-12-17] MEDS: TAMSULOSIN HCL 0.4 MG CAP.SR.24H PO SCH (20:56)
[2018-12-17 20:58] VITALS: BP 132/64
[2018-12-18 05:46] VITALS: BP 138/69
[2018-12-18] MEDS: LEVOTHYROXINE SODIUM 112 MCG TABLET PO SCH (06:08)
[2018-12-18] MEDS: BLOOD SUGAR DIAGNOSTIC 1 EACH STRIP VI SCH ×4 (06:32→20:38)
--- NOTE | 2018-12-18 06:58 | NUR ---
Received pt lying on bed watching TV, denies pain not in acute distress. Pt hooked to O2 at 1.5lpm via nasal cannula, no episode respiratoty distress on this shift. Due meds given as ordered, tolerated well. No s/sx of hypo/hyperglycemia. Safety protocols maintained, bed alarm on, wheels locked and in lowest positions, call light placed within easy reach. Left arm swelling still noted, elevated on 2 pillows. All needs attended to, kept clean and dry. Will continue with current plan of care.
[2018-12-18 08:00] VITALS: BP 132/88
[2018-12-18] MEDS: METHYLPHENIDATE HCL 5 MG TABLET PO SCH (09:18)
[2018-12-18] MEDS: FAMOTIDINE 20 MG TABLET PO SCH (09:18)
[2018-12-18] MEDS: ASPIRIN EC 81 MG TABLET.DR PO SCH (09:18)
[2018-12-18] MEDS: GLIMEPIRIDE 2 MG TABLET PO SCH (09:18)
[2018-12-18] MEDS: CARVEDILOL 12.5 MG TABLET PO SCH ×2 (09:22→20:38)
[2018-12-18] MEDS: DONEPEZIL 5 MG TABLET PO SCH (09:22)
[2018-12-18 16:47] VITALS: BP 143/99
[2018-12-18] MEDS ORDERED: WARFARIN SODIUM 2 MG TABLET PO ONE (17:00)
[2018-12-18] MEDS: INSULIN REGULAR, HUMAN 300 UNIT/3 ML VIAL SQ PRN ×2 (17:00→20:39)
[2018-12-18] MEDS: WARFARIN SODIUM 2 MG TABLET PO SCH (17:17)
--- NOTE | 2018-12-18 18:00 | NUR ---
Patient remained alert, not in any form of distress during the shift on oxygen at 1.5LPM via nasal cannula. No complain of any pain or discomfort. Due medications administered and tolerated well. Assisted with his needs. Call light and frequently used items placed within reach.
[2018-12-18 19:36] VITALS: BP 138/91
[2018-12-18] MEDS: TAMSULOSIN HCL 0.4 MG CAP.SR.24H PO SCH (20:37)
[2018-12-18] MEDS: ATORVASTATIN 10 MG TABLET PO SCH (20:38)
[2018-12-18] MEDS: MIRTAZAPINE 15 MG TABLET PO SCH (20:38)
--- NOTE | 2018-12-18 21:38 | NUR ---
Received pt resting in bed and watching tv. AAO x3, with episodes of forgetfulness. On 2L O2 via NC, tolerating well. No acute distress noted. Denies pain/ discomfort. Meds given as ordered. Blood sugar of 114, no insulin coverage as per sliding scale. Safety measures maintained. Call light and personal belongings within reach. Will continue to monitor.
[2018-12-19] MEDS: ALPRAZOLAM 0.5 MG TABLET PO PRN ×2 (03:24→21:48)
[2018-12-19 04:55] VITALS: BP 133/92
[2018-12-19] MEDS: LEVOTHYROXINE SODIUM 112 MCG TABLET PO SCH (06:15)
[2018-12-19] MEDS: BLOOD SUGAR DIAGNOSTIC 1 EACH STRIP VI SCH ×4 (06:34→20:13)
--- NOTE | 2018-12-19 07:14 | NUR ---
Patient noted sitting up in bed, no complaints of pain at this time, no signs of distress noted, call light in reach, bed locked and in lowest position, all needs met at this time, nasal cannula noted at 2 liters
[2018-12-19] MEDS: ASPIRIN EC 81 MG TABLET.DR PO SCH (08:23)
[2018-12-19] MEDS: GLIMEPIRIDE 2 MG TABLET PO SCH (08:23)
[2018-12-19] MEDS: CARVEDILOL 12.5 MG TABLET PO SCH ×2 (08:23→20:11)
[2018-12-19] MEDS: FAMOTIDINE 20 MG TABLET PO SCH (08:23)
[2018-12-19] MEDS: METHYLPHENIDATE HCL 5 MG TABLET PO SCH (08:23)
[2018-12-19] MEDS: DONEPEZIL 5 MG TABLET PO SCH (08:23)
[2018-12-19 08:39] VITALS: BP 145/99
[2018-12-19 16:56] VITALS: BP 142/97
[2018-12-19] MEDS: WARFARIN SODIUM 2.5 MG TABLET PO SCH (16:57)
[2018-12-19] MEDS: INSULIN REGULAR, HUMAN 300 UNIT/3 ML VIAL SQ PRN ×2 (16:59→20:14)
--- NOTE | 2018-12-19 19:40 | NUR ---
In bed, awake. Denies any pain/discomforts at thsi time. No s/s of hypo/hyperglycemia noted. Safety measures and fall precaution maintained. Continue care as planned.
[2018-12-19] MEDS: MIRTAZAPINE 15 MG TABLET PO SCH (20:10)
[2018-12-19] MEDS: ATORVASTATIN 10 MG TABLET PO SCH (20:10)
[2018-12-19] MEDS: TAMSULOSIN HCL 0.4 MG CAP.SR.24H PO SCH (20:10)
[2018-12-19 21:14] VITALS: BP 142/91
[2018-12-20 04:15] VITALS: BP 136/86
--- NOTE | 2018-12-20 06:14 | NUR ---
Shift End Report: Xanax was given for anxiety/restlessness with delayed effect. Patient complaining of difficulty breathing, No s/s of respiratory distress. O2 sat checked 98-99% on 2L/min via NC. Kept HOB elevated at all times. Closely monitored. All needs attended and met. No significant event reported . Continue current rehab plan of care.
[2018-12-20] MEDS: LEVOTHYROXINE SODIUM 112 MCG TABLET PO SCH (06:23)
[2018-12-20] MEDS: BLOOD SUGAR DIAGNOSTIC 1 EACH STRIP VI SCH ×4 (06:43→21:36)
[2018-12-20 08:00] VITALS: BP 144/99
[2018-12-20] MEDS: METHYLPHENIDATE HCL 5 MG TABLET PO SCH (08:07)
[2018-12-20] MEDS: GLIMEPIRIDE 2 MG TABLET PO SCH (08:07)
[2018-12-20] MEDS: ASPIRIN EC 81 MG TABLET.DR PO SCH (08:07)
[2018-12-20] MEDS: FAMOTIDINE 20 MG TABLET PO SCH (08:07)
[2018-12-20] MEDS: DONEPEZIL 5 MG TABLET PO SCH (08:07)
[2018-12-20] MEDS: CARVEDILOL 12.5 MG TABLET PO SCH ×2 (08:07→20:43)
[2018-12-20] MEDS: INSULIN REGULAR, HUMAN 300 UNIT/3 ML VIAL SQ PRN ×2 (08:13→21:38)
--- NOTE | 2018-12-20 14:41 | NUR ---
Pitting edema noted in patients abdominal area and left arm, MD Perdomo notified with orders for Lasix Po daily, US of abdomen and left arm, albumin lab, and an Echo.
[2018-12-20] MEDS: AMLODIPINE 5 MG TABLET PO SCH (15:34)
[2018-12-20 16:21] VITALS: BP 144/99
[2018-12-20] MEDS: FUROSEMIDE 20 MG TABLET PO SCH (16:43)
[2018-12-20] MEDS: WARFARIN SODIUM 2 MG TABLET PO SCH (16:47)
[2018-12-20] MEDS: ALPRAZOLAM 0.5 MG TABLET PO PRN (18:12)
--- NOTE | 2018-12-20 19:40 | NUR ---
Sleeping soundly and comfortably during initial rounds. No s/s of respiratory distress. HOB slightly elevated with continuos O2 at 3L via NC, saturating 99% at this time. No s/s of hypo/hyperglycemia. Safety measure and fall precaution maintained. Continue care as planned.
[2018-12-20 20:31] VITALS: BP 142/98
[2018-12-20] MEDS: MIRTAZAPINE 15 MG TABLET PO SCH (20:42)
[2018-12-20] MEDS: ATORVASTATIN 10 MG TABLET PO SCH (20:42)
[2018-12-20] MEDS: TAMSULOSIN HCL 0.4 MG CAP.SR.24H PO SCH (20:42)
--- NOTE | 2018-12-21 | NUR ---
NPO after midnight initiated as ordered.
--- NOTE | 2018-12-21 05:46 | NUR ---
Shift End Report: Slept good. No complaint presented all night. No s/s of respiratory distress. All needs attended and met. No significant event reported. Continue current rehab plan of care.
[2018-12-21 05:56] VITALS: BP 137/83
[2018-12-21] MEDS: LEVOTHYROXINE SODIUM 112 MCG TABLET PO SCH ×2 (05:57→11:04)
[2018-12-21] MEDS: BLOOD SUGAR DIAGNOSTIC 1 EACH STRIP VI SCH ×4 (06:36→20:06)
[2018-12-21 07:49] VITALS: BP 152/96
--- NOTE | 2018-12-21 09:47 | NUR ---
Patient continue oxugen via nasal cannula at 2-3LPM with SAT 99%. not in distress. Continue NPO for abdominal JUSTO. For cardio consult. MD Laughlin aware. will transfer patient to [facility]. will continue monitor
[2018-12-21] MEDS: ASPIRIN EC 81 MG TABLET.DR PO SCH (11:00)
[2018-12-21] MEDS: GLIMEPIRIDE 2 MG TABLET PO SCH (11:00)
[2018-12-21] MEDS: FAMOTIDINE 20 MG TABLET PO SCH (11:01)
[2018-12-21] MEDS: METHYLPHENIDATE HCL 5 MG TABLET PO SCH (11:03)
[2018-12-21] MEDS: FUROSEMIDE 20 MG TABLET PO SCH (11:03)
[2018-12-21] MEDS: CARVEDILOL 12.5 MG TABLET PO SCH ×2 (11:04→20:13)
[2018-12-21] MEDS: AMLODIPINE 5 MG TABLET PO SCH (11:05)
[2018-12-21] MEDS: DONEPEZIL 5 MG TABLET PO SCH (11:05)
[2018-12-21] MEDS ORDERED: FUROSEMIDE 20 MG TABLET PO SCH (12:00)
--- NOTE | 2018-12-21 13:13 | NUR ---
Patient abdomen JUSTO result relayed to MD Bernal with no new order. Patient still having difficulty breathing with 24 respiration. MD aware. waiting order for transfer to [facility].
[2018-12-21 15:45] VITALS: BP 127/75
[2018-12-21] MEDS: INSULIN REGULAR, HUMAN 300 UNIT/3 ML VIAL SQ PRN (16:14)
[2018-12-21] MEDS: WARFARIN SODIUM 2.5 MG TABLET PO SCH (16:15)
[2018-12-21] MEDS ORDERED: FUROSEMIDE 20 MG/2 ML VIAL IV ONE (16:45)
--- NOTE | 2018-12-21 17:23 | NUR ---
Patient seen and examined by MD Laughlin with ordered lasix 60mg via IV push- given. Inserted IV around at right hand G22. For transfer to telemetry at room 321. will continue monitor
[2018-12-21 19:30] VITALS: BP 119/71
[2018-12-21 20:13] VITALS: BP 119/71
[2018-12-21] MEDS: TAMSULOSIN HCL 0.4 MG CAP.SR.24H PO SCH (20:13)
[2018-12-21] MEDS: ATORVASTATIN 10 MG TABLET PO SCH (20:13)
[2018-12-21] MEDS: MIRTAZAPINE 15 MG TABLET PO SCH (20:13)
--- NOTE | 2018-12-21 20:54 | NUR ---
patient discharged from unit to Telemetry at 2044 in room 321. Patient stable, and report given to Jaida.
[2018-12-21] MEDS ORDERED: LEVO112T5 PO (22:08)
[2018-12-21] MEDS ORDERED: INSU100V28 SQ (22:08)
[2018-12-21] MEDS ORDERED: ATOR10TA PO (22:08)
[2018-12-21] MEDS ORDERED: ALPR0.5T8 PO (22:08)
[2018-12-21] MEDS ORDERED: ASPI81TA31 PO (22:08)
[2018-12-21] MEDS ORDERED: DONE5TAB34 PO (22:08)
[2018-12-21] MEDS ORDERED: FAMO20TA8 PO (22:08)
[2018-12-21] MEDS ORDERED: ALBU2.5V38 NEB (22:08)
[2018-12-21] MEDS ORDERED: GLIM1TAB3 PO (22:08)
[2018-12-21] MEDS ORDERED: CARV12.5 PO (22:08)
[2018-12-21] MEDS ORDERED: MIRT15TA7 PO (22:08)
[2018-12-21] MEDS ORDERED: TAMS-3 PO (22:08)
[2018-12-21] MEDS ORDERED: WARF-68 PO (22:08)
[2018-12-21] MEDS ORDERED: DEXT50DI8 IV (22:08)
[2018-12-21] MEDS ORDERED: BLOO-697 IN (22:08)
[2018-12-21] MEDS ORDERED: [UNRECOGNIZED DRUG - CODE] PO (22:08)
[2018-12-22] MEDS ORDERED: AMLO5TAB9 PO (11:01)
[2018-12-22] MEDS ORDERED: WARF2TAB57 PO (11:02)
[2018-12-22] MEDS ORDERED: FURO-152 PO (11:04)
[2018-12-25] MEDS ORDERED: DOCU100C36 PO (13:48)
[2018-12-25] MEDS ORDERED: PANT40TA2 PO (13:48)
[2018-12-25] MEDS ORDERED: LOSA25TA3 PO (13:48)
[2018-12-25] MEDS ORDERED: BUME1TAB8 PO (13:48)
[2018-12-25] MEDS ORDERED: PROT30LI PO (13:48)
== END 2018-12-21 20:50 | disposition short-term general hospital (02) | DRG 682 ==
PROVIDERS: ADMIT Physical Medicine & Rehabilitation Pain Medicine; ATTEND Physical Medicine & Rehabilitation Pain Medicine
DX: N17.0 Acute kidney failure with tubular necrosis (principal); I50.23 Acute on chronic systolic (congestive) heart failure; G92 Toxic encephalopathy; J69.0 Pneumonitis due to inhalation of food and vomit; J90 Pleural effusion, not elsewhere classified; I13.0 Hypertensive heart and chronic kidney disease with heart failure and stage 1 through stage 4 chronic kidney disease, or unspecified chronic kidney disease; D68.59 Other primary thrombophilia; I42.9 Cardiomyopathy, unspecified; N39.0 Urinary tract infection, site not specified; E44.0 Moderate protein-calorie malnutrition; F03.90 Unspecified dementia, unspecified severity, without behavioral disturbance, psychotic disturbance, mood disturbance, and anxiety; F32.9 Major depressive disorder, single episode, unspecified; I25.10 Atherosclerotic heart disease of native coronary artery without angina pectoris; Z95.1 Presence of aortocoronary bypass graft; I71.2 Thoracic aortic aneurysm, without rupture; N40.0 Benign prostatic hyperplasia without lower urinary tract symptoms; E03.9 Hypothyroidism, unspecified; E11.22 Type 2 diabetes mellitus with diabetic chronic kidney disease; N18.9 Chronic kidney disease, unspecified; I70.0 Atherosclerosis of aorta; E78.5 Hyperlipidemia, unspecified; F01.50 Vascular dementia, unspecified severity, without behavioral disturbance, psychotic disturbance, mood disturbance, and anxiety; F41.9 Anxiety disorder, unspecified; I48.0 Paroxysmal atrial fibrillation; Z79.01 Long term (current) use of anticoagulants; N13.2 Hydronephrosis with renal and ureteral calculous obstruction; Z16.12 Extended spectrum beta lactamase (ESBL) resistance; K21.9 Gastro-esophageal reflux disease without esophagitis; Z88.8 Allergy status to other drugs, medicaments and biological substances; Z68.23 Body mass index [BMI] 23.0-23.9, adult; M79.89 Other specified soft tissue disorders
CPT/HCPCS: 36415; 70030-TC; 71045; 76700; 83735; 84100; 84443; 85025; 85610; 87086; 93307; 94664; A4663; J0696; J1815; J1940; J2185; J3490; J7040; J7060

== ENCOUNTER 2018-12-21 21:13 | Inpatient (IN) | payer MEDICARE, MEDICAID ==
[~2018-12-21] VITALS: Ht 182.9 cm; Wt 65.9 kg
[2018-12-21 21:00] VITALS: BP 131/78
[~2018-12-21 21:13] MED LIST changes: -FURO-151 PO
[2018-12-21] MEDS ORDERED: ALPR0.5T8 PO (22:08)
[2018-12-21] MEDS ORDERED: CARV12.5 PO (22:08)
[2018-12-21] MEDS ORDERED: WARF-68 PO (22:08)
[2018-12-21] MEDS ORDERED: ASPI81TA31 PO (22:08)
[2018-12-21] MEDS ORDERED: MIRT15TA7 PO (22:08)
[2018-12-21] MEDS ORDERED: ATOR10TA PO (22:08)
[2018-12-21] MEDS ORDERED: BLOO-697 IN (22:08)
[2018-12-21] MEDS ORDERED: LEVO112T5 PO (22:08)
[2018-12-21] MEDS ORDERED: FAMO20TA8 PO (22:08)
[2018-12-21] MEDS ORDERED: DONE5TAB34 PO (22:08)
[2018-12-21] MEDS ORDERED: [UNRECOGNIZED DRUG - CODE] PO (22:08)
[2018-12-21] MEDS ORDERED: GLIM1TAB3 PO (22:08)
[2018-12-21] MEDS ORDERED: ALBU2.5V38 NEB (22:08)
[2018-12-21] MEDS ORDERED: TAMS-3 PO (22:08)
[2018-12-21] MEDS ORDERED: INSU100V28 SQ (22:08)
[2018-12-21] MEDS ORDERED: DEXT50DI8 IV (22:08)
[2018-12-21] MEDS ORDERED: MORPHINE SULFATE 2 MG/1 ML DISP.SYRIN IV PRN (22:15)
[2018-12-21] MEDS ORDERED: ALBUTEROL SULFATE 2.5 MG/3 ML NEBU NEB PRN (22:15)
[2018-12-21] MEDS ORDERED: ONDANSETRON 4 MG/2 ML VIAL IV PRN (22:15)
[2018-12-21] MEDS ORDERED: ACETAMINOPHEN 325 MG TABLET PO PRN (22:15)
[2018-12-22] VITALS: BP 138/91
[2018-12-22 04:33] VITALS: BP 136/85
[2018-12-22] MEDS: PANTOPRAZOLE SODIUM 40 MG TABLET.DR PO SCH (06:11)
[2018-12-22 06:48] LABS: BASOPHILS # (AUTO) 0.1 K/uL (0.0-8.0); BASOPHILS % (AUTO) 0.9 % (0.0-2.0); EOSINOPHILS # (AUTO) 0.2 K/uL (0.0-0.7); EOSINOPHILS % (AUTO) 3.8 % (0.0-7.0); HEMATOCRIT 41.3 % (36.7-47.1); HEMOGLOBIN 12.9 g/dL (12.5-16.3); LYMPHOCYTES # (AUTO) 0.4 K/uL (20.0-40.0); LYMPHOCYTES % (AUTO) 7.6 % (20.5-51.5); MEAN CORPUSCULAR HEMOGLOBIN 26.1 uug (23.8-33.4); MEAN CORPUSCULAR HGB CONC 31 g/dL (32.5-36.3); MEAN CORPUSCULAR VOLUME 83.5 fL (73.0-96.2); MONOCYTES # (AUTO) 0.3 K/uL (2.0-10.0); MONOCYTES % (AUTO) 6.1 % (0.0-11.0); NEUTROPHILS # (AUTO) 4.6 K/uL (1.8-8.9); NEUTROPHILS % (AUTO) 81.6 % (38.5-71.5); PLATELET COUNT (AUTO) 196 K/uL (152-348); RED BLOOD CELL COUNT(AUTO) 4.95 MIL/uL (4.06-5.63); WHITE BLOOD COUNT (AUTO) 5.7 K/uL (3.6-10.2)
[2018-12-22] MEDS ORDERED: DEXTROSE 50% 50 ML DISP.SYRIN IV PRN (07:00)
[2018-12-22 07:06] LABS: THYROID STIMULATING HORMONE 4.984 mIU/mL (0.358-3.740)
--- NOTE | 2018-12-22 07:10 | NUR ---
patient received from [facility] yesterday at 2100. report received from night nurse at [facility]. v/s stable and no signs of acute distress throughout shift. safety and comfort measures provided at all times. will continue plan of care and endorse accordingly to morning nurse. BS found to be at 60. provided patient with nursing interventions to bring up blood sugar. currently at 95. Endorsed to morning nurse to monitor BS and breakfast tray.
[2018-12-22] MEDS ORDERED: BLOOD SUGAR DIAGNOSTIC 1 EACH STRIP VI SCH (07:30)
[2018-12-22] MEDS: BLOOD SUGAR DIAGNOSTIC 1 EACH STRIP VI SCH ×4 (07:31→20:54)
[2018-12-22 07:34] LABS: CREATININE 1.3 mg/dL (0.6-1.3); MAGNESIUM 1.8 mg/dL (1.8-2.4); PHOSPHOROUS 2.9 mg/dL (2.5-4.9); POTASSIUM 3.4 mmol/L (3.5-5.1); TOTAL PROTEIN, SERUM 5.6 g/dL (6.4-8.2)
[2018-12-22 08:00] VITALS: BP 127/75
[2018-12-22] MEDS ORDERED: FUROSEMIDE 20 MG/2 ML VIAL IV SCH ×2 (09:00→21:00)
[2018-12-22] MEDS ORDERED: POTASSIUM CHLORIDE 20 MEQ TAB.PRT.SR PO ONE (09:15)
[2018-12-22] MEDS ORDERED: FUROSEMIDE 20 MG/2 ML VIAL IV ONE (10:45)
[2018-12-22] MEDS ORDERED: CARVEDILOL 12.5 MG TABLET PO SCH (10:45)
[2018-12-22] MEDS ORDERED: AMLO5TAB9 PO (11:01)
[2018-12-22] MEDS ORDERED: WARF2TAB57 PO (11:02)
[2018-12-22] MEDS ORDERED: FURO-152 PO (11:04)
[2018-12-22] MEDS: LOSARTAN POTASSIUM 25 MG TABLET PO SCH (11:06)
[2018-12-22 11:15] VITALS: BP 126/81
[2018-12-22] MEDS: INSULIN REGULAR, HUMAN 300 UNIT/3 ML VIAL SQ PRN ×2 (11:21→20:58)
[2018-12-22] MEDS ORDERED: INSULIN REGULAR, HUMAN 300 UNIT/3 ML VIAL SQ PRN (13:15)
[2018-12-22 15:19] VITALS: BP 124/77
[2018-12-22] MEDS: WARFARIN SODIUM 2 MG TABLET PO SCH (16:48)
[2018-12-22] MEDS: CARVEDILOL 12.5 MG TABLET PO SCH (17:39)
--- NOTE | 2018-12-22 19:09 | NUR ---
Handoff with [facility] Cesar. Johann Cole RN
[2018-12-22 20:05] VITALS: BP 131/85
[2018-12-22] MEDS: TAMSULOSIN HCL 0.4 MG CAP.SR.24H PO SCH (20:43)
[2018-12-22] MEDS: FUROSEMIDE 40 MG/4 ML VIAL IVP SCH (20:43)
[2018-12-22] MEDS: ATORVASTATIN 10 MG TABLET PO SCH (20:43)
[2018-12-22] MEDS: MIRTAZAPINE 15 MG TABLET PO SCH (20:44)
[2018-12-22] MEDS: DOCUSATE SODIUM 100 MG CAPSULE PO SCH (20:44)
[2018-12-22] MEDS ORDERED: DOCUSATE SODIUM 250 MG CAPSULE PO SCH (21:00)
[2018-12-22] MEDS ORDERED: ATORVASTATIN 20 MG TABLET PO SCH (21:00)
[2018-12-23] VITALS: BP 132/88
[2018-12-23 04:47] VITALS: BP 127/84
[2018-12-23] MEDS: PANTOPRAZOLE SODIUM 40 MG TABLET.DR PO SCH (06:00)
--- NOTE | 2018-12-23 06:00 | NUR ---
patient received lying in bed. a/o x1. no signs of acute distress and v/s stable throughout shift. safety and comfort measures provided at all times. denies pain at this time. will continue to monitor and continue plan of care.
[2018-12-23] MEDS: LEVOTHYROXINE SODIUM 112 MCG TABLET PO SCH (06:01)
[2018-12-23 06:28] LABS: BASOPHILS # (AUTO) 0.1 K/uL (0.0-8.0); EOSINOPHILS # (AUTO) 0.2 K/uL (0.0-0.7); EOSINOPHILS % (AUTO) 3.9 % (0.0-7.0); HEMATOCRIT 43.9 % (36.7-47.1); HEMOGLOBIN 13.8 g/dL (12.5-16.3); LYMPHOCYTES # (AUTO) 0.5 K/uL (20.0-40.0); LYMPHOCYTES % (AUTO) 9.6 % (20.5-51.5); MEAN CORPUSCULAR HEMOGLOBIN 26.3 uug (23.8-33.4); MEAN CORPUSCULAR HGB CONC 31 g/dL (32.5-36.3); MEAN CORPUSCULAR VOLUME 83.8 fL (73.0-96.2); MONOCYTES # (AUTO) 0.4 K/uL (2.0-10.0); MONOCYTES % (AUTO) 7.4 % (0.0-11.0); NEUTROPHILS # (AUTO) 4.1 K/uL (1.8-8.9); NEUTROPHILS % (AUTO) 78.1 % (38.5-71.5); PLATELET COUNT (AUTO) 208 K/uL (152-348); RED BLOOD CELL COUNT(AUTO) 5.24 MIL/uL (4.06-5.63); WHITE BLOOD COUNT (AUTO) 5.3 K/uL (3.6-10.2)
[2018-12-23 06:45] LABS: CREATININE 1.4 mg/dL (0.6-1.3); MAGNESIUM 1.8 mg/dL (1.8-2.4); PHOSPHOROUS 2.5 mg/dL (2.5-4.9); POTASSIUM 3.7 mmol/L (3.5-5.1); TOTAL PROTEIN, SERUM 6.5 g/dL (6.4-8.2)
[2018-12-23] MEDS: BLOOD SUGAR DIAGNOSTIC 1 EACH STRIP VI SCH ×4 (06:47→20:37)
--- NOTE | 2018-12-23 08:00 | NUR ---
AWAKE ALERT AND SOMEWHAT RESTLESS, O2 AT 2L SATURATING 1OO%, NO SIGNS OF DISTRESS. CLOSELY MONITORED. SR ON MONITOR
[2018-12-23] MEDS: INSULIN REGULAR, HUMAN 300 UNIT/3 ML VIAL SQ PRN ×2 (08:06→12:01)
[2018-12-23] MEDS: LOSARTAN POTASSIUM 25 MG TABLET PO SCH (08:08)
[2018-12-23] MEDS: ASPIRIN 81 MG TAB.CHEW PO SCH (08:08)
[2018-12-23] MEDS: CARVEDILOL 12.5 MG TABLET PO SCH ×2 (08:08→17:16)
[2018-12-23] MEDS: DONEPEZIL 5 MG TABLET PO SCH (08:08)
[2018-12-23] MEDS: FUROSEMIDE 40 MG/4 ML VIAL IVP SCH ×2 (08:08→20:37)
[2018-12-23] MEDS: METHYLPHENIDATE HCL 5 MG TABLET PO SCH (08:08)
[2018-12-23] MEDS: ALPRAZOLAM 0.5 MG TABLET PO PRN (08:21)
[2018-12-23] MEDS ORDERED: POTASSIUM CHLORIDE 20 MEQ TAB.PRT.SR PO ONE (09:30)
--- NOTE | 2018-12-23 10:00 | NUR ---
MEDICATED FOR ANXIETY PRN WITH GOOD RELIEF, RESTING AFTER.
[2018-12-23] MEDS ORDERED: CARVEDILOL 12.5 MG TABLET PO ONE (11:00)
--- NOTE | 2018-12-23 11:00 | NUR ---
SEEN BY DR MOCTEZUMA NOTED LABS WITH ORDERS
[2018-12-23 11:45] VITALS: BP 124/77
[2018-12-23] MEDS: MAGNESIUM SULFATE/D5W 100 ML IV SCH ×3 (12:05→13:50)
--- NOTE | 2018-12-23 15:08 | NUR ---
RESTING COMFORTABLY IN BED NO SS OF PAIN OR DISTRESS, CONTINUE WITH TELE OBSERVATION
[2018-12-23 15:13] VITALS: BP 136/88
[2018-12-23] MEDS ORDERED: WARFARIN SODIUM 2.5 MG TABLET PO SCH (17:00)
--- NOTE | 2018-12-23 19:48 | NUR ---
Beginning of Shift Bedside report received from AM nurse. Pt is sleeping, easy to arouse. Breathing is even and unlabored. With O2 2LPM of Nasal Cannula. No signs of acute respiratory distress/fluid overload. Noted with bilateral lower extremity trace edema. Remains on tele, with pacemaker currently on sinus rhythm. On Coumadin therapy, with no signs of bleeding. Initial assessment done, will continue monitoring and document appropriately. Will continue to monitor.
[2018-12-23 20:00] VITALS: BP 120/68
[2018-12-23] MEDS: MIRTAZAPINE 15 MG TABLET PO SCH (20:38)
[2018-12-23] MEDS: DOCUSATE SODIUM 100 MG CAPSULE PO SCH (20:38)
[2018-12-23] MEDS: TAMSULOSIN HCL 0.4 MG CAP.SR.24H PO SCH (20:38)
[2018-12-23] MEDS: ATORVASTATIN 10 MG TABLET PO SCH (20:38)
[2018-12-24] VITALS: BP 133/86
[2018-12-24 04:00] VITALS: BP 128/86
--- NOTE | 2018-12-24 05:30 | NUR ---
Episode of Anxiety/Trying to Get out of bed Patient noted trying to get out of bed. Appears anxious and restless. Reoriented patient. Re-assured. Provided good perineal care and made patient comfortable in bed. PRN Xanax given, appears to be slowly taking into effect. Fall precautions reinforced. Oxygen 2LPM via NC in place, with no cardiorespiratory distress at this time. Able to sleep intermittently for about 4-5 hours. Will continue to monitor and endorse accordingly.
[2018-12-24] MEDS: ALPRAZOLAM 0.5 MG TABLET PO PRN ×2 (05:45→17:02)
[2018-12-24] MEDS: LEVOTHYROXINE SODIUM 112 MCG TABLET PO SCH (06:26)
[2018-12-24] MEDS: PANTOPRAZOLE SODIUM 40 MG TABLET.DR PO SCH (06:26)
[2018-12-24] MEDS: BLOOD SUGAR DIAGNOSTIC 1 EACH STRIP VI SCH ×4 (06:36→20:20)
[2018-12-24] MEDS: INSULIN REGULAR, HUMAN 300 UNIT/3 ML VIAL SQ PRN ×2 (07:49→20:25)
--- NOTE | 2018-12-24 08:00 | NUR ---
RESTING IN BED WITH O2 AT 2L NC SATURATING 100. COTINUE PLAN OF CARE
[2018-12-24] MEDS: METHYLPHENIDATE HCL 5 MG TABLET PO SCH (08:17)
[2018-12-24] MEDS: FUROSEMIDE 40 MG/4 ML VIAL IVP SCH (08:17)
[2018-12-24] MEDS: ASPIRIN 81 MG TAB.CHEW PO SCH (08:17)
[2018-12-24] MEDS: DONEPEZIL 5 MG TABLET PO SCH (08:18)
[2018-12-24] MEDS: LOSARTAN POTASSIUM 25 MG TABLET PO SCH (08:19)
[2018-12-24] MEDS: CARVEDILOL 12.5 MG TABLET PO SCH ×2 (08:20→16:27)
--- NOTE | 2018-12-24 10:00 | NUR ---
SEEN BY DR LE FOR FOLLOW-UP SAID CONTINUE TELE TILL AM AND WILL SEE PATIENT IN
[2018-12-24 11:38] VITALS: BP 100/55
--- NOTE | 2018-12-24 13:34 | NUR ---
RESTING COMFORTABLY NO SS OF DISTRESS SR ON MONITOR.
[2018-12-24 15:45] VITALS: BP 119/65
[2018-12-24] MEDS: BUMETANIDE 1 MG TABLET PO SCH (16:25)
[2018-12-24] MEDS: WARFARIN SODIUM 2 MG TABLET PO SCH (16:27)
[2018-12-24] MEDS: MIRTAZAPINE 15 MG TABLET PO SCH (20:20)
[2018-12-24] MEDS: DOCUSATE SODIUM 100 MG CAPSULE PO SCH (20:20)
[2018-12-24] MEDS: TAMSULOSIN HCL 0.4 MG CAP.SR.24H PO SCH (20:20)
[2018-12-24] MEDS: ATORVASTATIN 10 MG TABLET PO SCH (20:20)
[2018-12-24 20:25] VITALS: BP 120/72
[2018-12-25 05:47] VITALS: BP 134/91
[2018-12-25] MEDS: PANTOPRAZOLE SODIUM 40 MG TABLET.DR PO SCH (06:31)
[2018-12-25] MEDS: LEVOTHYROXINE SODIUM 112 MCG TABLET PO SCH (06:31)
[2018-12-25] MEDS: BLOOD SUGAR DIAGNOSTIC 1 EACH STRIP VI SCH ×2 (06:32→11:31)
--- NOTE | 2018-12-25 06:57 | NUR ---
PT RESTED WELL IN BETWEEN CARE; NO ACUTE DISTRESS; REPOSITIONED FOR COMFORT; INCONTINCE CARE DONE; bm X1; NEEDS ATTENDED; SAFETY MAINTAINED.
--- NOTE | 2018-12-25 07:20 | NUR ---
Received patient in Bed, awake and verbally responsive. No signs of Distress noted. No SOB. No complain of Pain or discomfort. call light within reach. Will continue to monitor.
[2018-12-25] MEDS: CARVEDILOL 12.5 MG TABLET PO SCH (08:29)
[2018-12-25] MEDS: BUMETANIDE 1 MG TABLET PO SCH (08:33)
[2018-12-25] MEDS: METHYLPHENIDATE HCL 5 MG TABLET PO SCH (08:34)
[2018-12-25] MEDS: ASPIRIN 81 MG TAB.CHEW PO SCH (08:34)
[2018-12-25] MEDS: LOSARTAN POTASSIUM 25 MG TABLET PO SCH (08:34)
[2018-12-25] MEDS: DONEPEZIL 5 MG TABLET PO SCH (08:34)
[2018-12-25 10:05] LABS: BASOPHILS # (AUTO) 0.1 K/uL (0.0-8.0); EOSINOPHILS # (AUTO) 0.2 K/uL (0.0-0.7); EOSINOPHILS % (AUTO) 3.9 % (0.0-7.0); HEMATOCRIT 40.1 % (36.7-47.1); HEMOGLOBIN 12.6 g/dL (12.5-16.3); LYMPHOCYTES # (AUTO) 0.4 K/uL (20.0-40.0); LYMPHOCYTES % (AUTO) 6.7 % (20.5-51.5); MEAN CORPUSCULAR HEMOGLOBIN 26.7 uug (23.8-33.4); MEAN CORPUSCULAR HGB CONC 32 g/dL (32.5-36.3); MEAN CORPUSCULAR VOLUME 84.9 fL (73.0-96.2); MONOCYTES # (AUTO) 0.6 K/uL (2.0-10.0); MONOCYTES % (AUTO) 9.8 % (0.0-11.0); NEUTROPHILS # (AUTO) 4.6 K/uL (1.8-8.9); NEUTROPHILS % (AUTO) 78.6 % (38.5-71.5); PLATELET COUNT (AUTO) 171 K/uL (152-348); RED BLOOD CELL COUNT(AUTO) 4.73 MIL/uL (4.06-5.63); WHITE BLOOD COUNT (AUTO) 5.9 K/uL (3.6-10.2)
[2018-12-25 10:15] LABS: BILIRUBIN,TOTAL 1.2 mg/dL (0.2-1.0); CREATININE 1.5 mg/dL (0.6-1.3); MAGNESIUM 1.8 mg/dL (1.8-2.4); PHOSPHOROUS 2.5 mg/dL (2.5-4.9); POTASSIUM 3.8 mmol/L (3.5-5.1); TOTAL PROTEIN, SERUM 6.1 g/dL (6.4-8.2)
[2018-12-25] MEDS ORDERED: PROTEIN SUPPLEMENT (PROSTAT) 30 ML LIQUID PO SCH (10:30)
[2018-12-25 12:00] VITALS: BP 109/63
[2018-12-25] MEDS: INSULIN REGULAR, HUMAN 300 UNIT/3 ML VIAL SQ PRN (12:11)
[2018-12-25] MEDS ORDERED: PANT40TA2 PO (13:48)
[2018-12-25] MEDS ORDERED: LOSA25TA3 PO (13:48)
[2018-12-25] MEDS ORDERED: DOCU100C36 PO (13:48)
[2018-12-25] MEDS ORDERED: PROT30LI PO (13:48)
[2018-12-25] MEDS ORDERED: BUME1TAB8 PO (13:48)
--- NOTE | 2018-12-25 15:18 | NUR ---
Patient in bed, awake and verbally responsive, No signs of distress noted. No SOB. No complain of pain or discomfort. No signs of hyper/hypoglycemia, last Blood Sugar is 231 at 1200 gave 4 units of insulin. Patient with Discharge Order to [facility], gave report to ruben CALLE. Discharge Instructions given to patient and verbalized Understanding. All belongings was signed and sent to patient. Removed IV site and wrist band. patient was picked up by 2 EMT in stable condition.
== END 2018-12-25 15:21 | DRG 291 ==
LOC: TELE3 21:13 → MEDSURG3 12-24 21:50
PROVIDERS: ADMIT Internal Medicine; ATTEND Internal Medicine
DX: I13.0 Hypertensive heart and chronic kidney disease with heart failure and stage 1 through stage 4 chronic kidney disease, or unspecified chronic kidney disease (principal); I50.23 Acute on chronic systolic (congestive) heart failure; N17.0 Acute kidney failure with tubular necrosis; E43 Unspecified severe protein-calorie malnutrition; Z68.1 Body mass index [BMI] 19.9 or less, adult; D68.59 Other primary thrombophilia; N18.9 Chronic kidney disease, unspecified; I71.4 Abdominal aortic aneurysm, without rupture; I71.2 Thoracic aortic aneurysm, without rupture; N40.0 Benign prostatic hyperplasia without lower urinary tract symptoms; K21.9 Gastro-esophageal reflux disease without esophagitis; I25.10 Atherosclerotic heart disease of native coronary artery without angina pectoris; Z95.1 Presence of aortocoronary bypass graft; Z95.3 Presence of xenogenic heart valve; R62.7 Adult failure to thrive; N18.2 Chronic kidney disease, stage 2 (mild); I48.0 Paroxysmal atrial fibrillation; Z79.01 Long term (current) use of anticoagulants; F01.50 Vascular dementia, unspecified severity, without behavioral disturbance, psychotic disturbance, mood disturbance, and anxiety; E78.5 Hyperlipidemia, unspecified; E11.22 Type 2 diabetes mellitus with diabetic chronic kidney disease; E03.9 Hypothyroidism, unspecified; Z79.890 Hormone replacement therapy; I25.5 Ischemic cardiomyopathy; Z74.09 Other reduced mobility; E87.5 Hyperkalemia; R60.0 Localized edema; Z87.440 Personal history of urinary (tract) infections; I89.0 Lymphedema, not elsewhere classified; I08.2 Rheumatic disorders of both aortic and tricuspid valves
CPT/HCPCS: 36415; 70030-TC; 83735; 84100; 84443; 85025; 85610; 85730; 94664; G0378; J1815; J1940; J3475